=== PATIENT | female | born 1975 ===

== ENCOUNTER 2017-04-07 18:16 | Emergency (ER) | payer SELFPAY ==
[2017-04-07 18:16] VITALS: BMI 37.3
[2017-04-07 18:23] VITALS: BP 158/82; PULSE 118; RESP 20; O2SAT 95
[2017-04-07] MEDS ORDERED: Sodium Chloride 0.9% 1,000 ML IV STA (18:47)
[2017-04-07] MEDS ORDERED: Dexamethasone 10 MG in Sodium Chloride 0.9% 50 ML IV ONE (18:47)
[2017-04-07] MEDS ORDERED: Clindamycin 600 MG in Sodium Chloride 0.9% 100 ML IVPB STA (18:47)
--- NOTE | 2017-04-07 18:51 | ED PDOC ---
HPI: CCC, URI, Sore Throat Time Seen by Provider: 04/07/17 18:17 Chief Complaint (Nursing): ENT Problem Chief Complaint (Provider): Sore throat History Per: Patient Additional Complaint(s): 41 yo female, PMH of DM, presents to ED with complaints of severe sore throat since Monday, associated with fever. Past Medical History Reviewed: Nursing Documentation, Vital Signs Vital Signs: Last Vital Signs Temp 101.4 F H 04/07/17 20:15 Pulse 118 H 04/07/17 18:21 Resp 20 04/07/17 18:21 BP 158/82 H 04/07/17 18:21 Pulse Ox 95 04/07/17 18:51 - Medical History PMH: Anemia, Asthma, Bronchitis (07/27/16), Diabetes, HTN (HX, no meds), Migraine Denies: Chronic Kidney Disease - Surgical History Surgical History: No Surg Hx - Family History Family History: States: Unknown Family Hx - Living Arrangements Living Arrangements: With Family - Social History Current smoker - smoking cessation education provided: No Alcohol: Social Drugs: Denies - Home Medications Home Medications: Ambulatory Orders Medication Instructions Recorded Albuterol 0.083% [Albuterol 0.083% 2.5 mg IH Q4 PRN #20 neb 07/27/16 Inhal Bailey (2.5 mg/3 ml) UD] Albuterol HFA [Ventolin HFA 90 1 - 2 puff IH Q4 PRN #1 inhaler 07/27/16 mcg/actuation (8 g)] Ferrous Gluconate [Iron] 240 mg PO TID 10/04/16 Ibuprofen [Motrin Tab] 800 mg PO Q8 PRN 10/04/16 Clindamycin [Cleocin] 300 mg PO BID #14 cap 04/07/17 Ibuprofen [Motrin] 600 mg PO Q6 #20 tab 04/07/17 Methylprednisolone [Medrol Dose 4 mg PO DAILY #21 mg 04/07/17 Pack (21 tabs)] - Allergies Allergies/Adverse Reactions: Allergies Allergy/AdvReac Type Severity Reaction Status Date / Time PORK Allergy RASH Verified 04/07/17 18:21 shellfish derived Allergy RASH Verified 04/07/17 18:21 shrimp Allergy RASH Verified 04/07/17 18:21 red pepper Allergy SWELLING Uncoded 04/07/17 18:21 Review of Systems ROS Statement: Except As Marked, All Systems Reviewed And Found Negative Constitutional: Positive for: Fever ENT: Positive for: Throat Pain, Throat Swelling Physical Exam - Reviewed Nursing Documentation Reviewed: Yes Vital Signs Reviewed: Yes - Physical Exam Appears: Positive for: Well, Non-toxic, No Acute Distress Head Exam: Positive for: ATRAUMATIC, NORMAL INSPECTION, NORMOCEPHALIC Skin: Positive for: Normal Color, Warm, DRY Eye Exam: Positive for: EOMI, Normal appearance, PERRL ENT: Positive for: Normal ENT Inspection, Pharyngeal Erythema, Tonsillar Exudate , Tonsillar Swelling, Other (no palatal asymmetry, no uvula devation) Neck: Positive for: Normal, Painless ROM Cardiovascular/Chest: Positive for: Regular Rate, Rhythm Respiratory: Positive for: CNT, Normal Breath Sounds Gastrointestinal/Abdominal: Positive for: Normal Exam, Bowel Sounds, Soft Back: Positive for: Normal Inspection Extremity: Positive for: Normal ROM Neurologic/Psych: Positive for: Alert, Oriented - Laboratory Results Result Diagrams: 04/07/17 19:47 04/07/17 19:47 - ECG O2 Sat by Pulse Oximetry: 95 Medical Decision Making Medical Decision Making: IV access established and treatment initiated with IVF, Clinda., Morphine and Decadron First re-eval, pt report feeling improved. repeat temp 101 Labs resulted and reviewed with Pt who demonstrated full understanding Rapid strep (-) Throat culture pending Disposition - Clinical Impression Clinical Impression: Pharyngitis - Patient ED Disposition Is Patient to be Admitted: No - Disposition Disposition: Routine/Home Disposition Time: 21:48 Condition: STABLE Prescriptions: Clindamycin [Cleocin] 300 mg PO BID #14 cap Ibuprofen [Motrin] 600 mg PO Q6 #20 tab Methylprednisolone [Medrol Dose Pack (21 tabs)] 4 mg PO DAILY #21 mg Instructions: Pharyngitis (ED) Forms: [employer] (Hebrew) - POA Present On Arrival: None
[2017-04-07] MEDS ORDERED: Morphine 4 MG/ML VIAL ONE (19:15)
[2017-04-07 19:53] LABS: BASO # 0.1 K/uL (0.0-0.2); BASO % 0.8 % (0.0-2.0); EOS # 0.1 K/uL (0.0-0.7); EOS % 0.4 % (0.0-4.0); HEMOGLOBIN 11.9 g/dL (12.0-16.0); LYMPH # 1.6 K/uL (1.0-4.3); LYMPH % 9.5 % (20.0-40.0); MEAN CELL VOLUME 81.2 fl (81.0-99.0); MEAN CORPUSCULAR HEMOGLOBIN 26.4 pg (27.0-31.0); MEAN CORPUSCULAR HGB CONC 32.6 g/dL (33.0-37.0); MEAN PLATELET VOLUME 8.2 fl (7.2-11.7); MONO # 1.6 K/uL (0.0-0.8); MONO % 9.6 % (0.0-10.0); NEUT # 13.2 K/uL (1.8-7.0); NEUT % 79.7 % (50.0-75.0); PLATELET COUNT 352 K/uL (130-400); RED CELL DISTRIBUTION WIDTH 13.4 % (11.5-14.5); WHITE BLOOD COUNT 16.5 K/uL (4.8-10.8)
[2017-04-07 20:15] LABS: ALB/GLOB RATIO 1.2 (1.0-2.1); ALBUMIN 4.3 g/dL (3.5-5.0); ALT/SGPT 32 U/L (9-52); AST/SGOT 18 U/L (14-36); BLOOD UREA NITROGEN 5 mg/dl (7-17); GFR AFRICAN-AMERICAN > 60; GFR NON-AFRICAN AMERICAN > 60
[2017-04-07 21:11] LABS: ANISOCYTOSIS SLIGHT; BANDS 2 % (0-2); LYMPHOCYTE 11 % (20-50); MONOCYTE 12 % (0-10); NEUTROPHIL 75 % (42-75); PLATELET ESTIMATE NORMAL (NORMAL); TOTAL CELLS COUNTED 100
[2017-04-07 21:48] VITALS: TEMP 100.6
== END 2017-04-07 21:49 | disposition home or self-care (01) ==
LOC: H.ER 18:16
DX: J02.9 Acute pharyngitis, unspecified (principal)
CPT/HCPCS: 80053; 85025; 87040; 87070; 87430; 96374; 99283; J1100; J2270; J7040

== ENCOUNTER 2017-09-05 21:14 | Emergency (ER) | payer SELFPAY ==
[2017-09-05 21:14] VITALS: BMI 37.3
[2017-09-05 21:24] VITALS: TEMP 98.7; O2SAT 100
[2017-09-05] MEDS ORDERED: DiphenhydrAMINE 50 mg/ml Inj IM STA ×3 (21:44→23:16)
[2017-09-05] MEDS ORDERED: DiphenhydrAMINE 50 mg/ml Inj ONE ×2 (21:46→23:15)
[2017-09-05 21:52] VITALS: BP 151/88; RESP 18
[2017-09-05] MEDS ORDERED: Sodium Chloride 0.9% 1,000 ML IV STA (22:42)
[2017-09-05 23:11] LABS: BASO % 0.2 % (0.0-2.0); EOS # 0.5 K/uL (0.0-0.7); EOS % 4.1 % (0.0-4.0); HEMOGLOBIN 12.3 g/dL (12.0-16.0); LYMPH # 2.5 K/uL (1.0-4.3); LYMPH % 21.5 % (20.0-40.0); MEAN CORPUSCULAR HEMOGLOBIN 25.1 pg (27.0-31.0); MEAN CORPUSCULAR HGB CONC 31.8 g/dL (33.0-37.0); MEAN PLATELET VOLUME 8.6 fl (7.2-11.7); MONO # 0.9 K/uL (0.0-0.8); MONO % 7.9 % (0.0-10.0); NEUT # 7.8 K/uL (1.8-7.0); NEUT % 66.3 % (50.0-75.0); RBC 4.91 Mil/uL (3.80-5.20); RED CELL DISTRIBUTION WIDTH 15.3 % (11.5-14.5); WHITE BLOOD COUNT 11.8 K/uL (4.8-10.8)
[2017-09-05 23:17] LABS: ALB/GLOB RATIO 1.1 (1.0-2.1); ALBUMIN 4.3 g/dL (3.5-5.0); ALT/SGPT 36 U/L (9-52); AST/SGOT 20 U/L (14-36); BLOOD UREA NITROGEN 8 mg/dl (7-17); CALCIUM 9.1 mg/dL (8.4-10.2); GFR AFRICAN-AMERICAN > 60; GFR NON-AFRICAN AMERICAN > 60
[2017-09-05 23:25] LABS: BARBITURATES, UR NEGATIVE (NEGATIVE); BENZODIAZEPINES, UR NEGATIVE (NEGATIVE); OPIATES, UR NEGATIVE (NEGATIVE); PHENCYCLIDINE, UR NEGATIVE (NEGATIVE)
--- NOTE | 2017-09-06 12:18 | CARD ---
APPROVED REPORT EKG Measurement Heart [id number] <Conclusion> Sinus rhythm with marked sinus arrhythmia Otherwise normal ECG
--- NOTE | 2017-09-13 13:01 | ED PDOC ---
HPI: Allergic Reaction Time Seen by Provider: 09/05/17 21:31 Chief Complaint (Nursing): Allergic Reaction Chief Complaint (Provider): allergic reaction History Per: Patient, EMS History/Exam Limitations: no limitations Current Symptoms Are (Timing): Still Present Context: Food Possible Cause: Food Associated Symptoms: Skin Rash, Itching Home/EMS Treatment: None Severity: Mild Additional Complaint(s): 42yo female presents via EMS c/o itch/ mild rash with concern for exposure to soy in a snack she purchased at a local store several hours prior. The package states soy is present in the food. She denies sensation of throat closing, SOB or syncope. Past Medical History Reviewed: Historical Data, Nursing Documentation, Vital Signs Vital Signs: Last Vital Signs Temp 98.7 F 09/05/17 21:20 Pulse 90 09/05/17 21:50 Resp 18 09/05/17 21:50 BP 151/88 H 09/05/17 21:50 Pulse Ox 100 09/05/17 21:50 - Medical History PMH: Anemia, Asthma, Bronchitis (07/27/16), Diabetes, HTN (HX, no meds), Migraine Denies: Chronic Kidney Disease - Family History Family History: States: Unknown Family Hx - Social History Current smoker - smoking cessation education provided: No - Home Medications Home Medications: Ambulatory Orders Medication Instructions Recorded Albuterol 0.083% [Albuterol 0.083% 2.5 mg IH Q4 PRN #20 neb 07/27/16 Inhal Bailey (2.5 mg/3 ml) UD] Albuterol HFA [Ventolin HFA 90 1 - 2 puff IH Q4 PRN #1 inhaler 07/27/16 mcg/actuation (8 g)] Ferrous Gluconate [Iron] 240 mg PO TID 10/04/16 Ibuprofen [Motrin Tab] 800 mg PO Q8 PRN 10/04/16 Clindamycin [Cleocin] 300 mg PO BID #14 cap 04/07/17 Ibuprofen [Motrin] 600 mg PO Q6 #20 tab 04/07/17 Methylprednisolone [Medrol Dose 4 mg PO DAILY #21 mg 04/07/17 Pack (21 tabs)] DiphenhydrAMINE [Benadryl] 25 mg PO Q6 PRN #10 cap 09/05/17 Methylprednisolone [Medrol] 4 mg PO DAILY #1 tab.ds.pk 09/05/17 - Allergies Allergies/Adverse Reactions: Allergies Allergy/AdvReac Type Severity Reaction Status Date / Time PORK Allergy RASH Verified 09/06/17 14:33 shellfish derived Allergy RASH Verified 09/06/17 14:33 shrimp Allergy RASH Verified 09/06/17 14:33 red pepper Allergy SWELLING Uncoded 04/07/17 18:21 Review of Systems Constitutional: Negative for: Fever, Chills ENT: Negative for: Throat Pain, Throat Swelling Cardiovascular: Positive for: Chest Pain Respiratory: Positive for: Shortness of Breath Gastrointestinal: Negative for: Abdominal Pain Genitourinary Female: Negative for: Dysuria Musculoskeletal: Negative for: Neck Pain Skin: Negative for: Rash, Lesions Neurological: Negative for: Weakness, Numbness Psych: Negative for: Anxiety Physical Exam - Reviewed Nursing Documentation Reviewed: Yes Vital Signs Reviewed: Yes - Physical Exam Appears: Positive for: Well, Non-toxic, No Acute Distress Head Exam: Positive for: ATRAUMATIC, NORMAL INSPECTION, NORMOCEPHALIC Skin: Positive for: Warm, Rash (trace rash to neck/face, legs) Eye Exam: Positive for: EOMI, Normal appearance, PERRL ENT: Positive for: Normal ENT Inspection, Other (patent oropharynx). Negative for: Tonsillar Swelling Neck: Positive for: Normal, Painless ROM Cardiovascular/Chest: Positive for: Regular Rate, Rhythm Respiratory: Positive for: Normal Breath Sounds. Negative for: Stridor, Wheezing, Respiratory Distress Gastrointestinal/Abdominal: Positive for: Bowel Sounds, Soft. Negative for: Tenderness Back: Positive for: Normal Inspection Extremity: Positive for: Normal ROM. Negative for: Swelling Neurologic/Psych: Positive for: Alert, Oriented, Mood/Affect (anxious appearing , speech tangential at time grandiose). Negative for: Cerebellar Tests - Laboratory Results Result Diagrams: 09/05/17 23:08 09/05/17 23:05 - ECG ECG: Positive for: Interpreted By Me ECG Rhythm: Positive for: Normal ST Segment, Sinus Rhythm, Nonspecific Changes Rate: 77 O2 Sat by Pulse Oximetry: 100 Pulse Ox Interpretation: Normal - Progress ED Course And Treament: pt initially refused IV placement or blood draw. Benadryl offered IM. Eventually agreed to blood draw given report SOB, chest discomfort. She had periods of grandiosity and EMS reported she told them she was ?marrying the [facility]. She denies suicidal thoughts, hallucinations and while speech is mildly pressured, tangential, and appears anxious, she is not altered or actively hallucinatory while in ED. She was offered further observation in the ED but she refused and wanted to be discharged. While eccentric she did not display active indication to hold against will and was discharged to followup with PMD. No signs of anaphylaxis at the time of discharge. Disposition - Clinical Impression Clinical Impression: Allergic reaction - Patient ED Disposition Is Patient to be Admitted: No Counseled Patient/Family Regarding: Studies Performed - Disposition Disposition: Routine/Home Disposition Time: 23:15 Condition: STABLE Additional Instructions: Return to ER for any new symptoms. Avoid soy. Take benadryl as directed if symptoms return. Prescriptions: DiphenhydrAMINE [Benadryl] 25 mg PO Q6 PRN #10 cap PRN Reason: Allergy Symptoms Methylprednisolone [Medrol] 4 mg PO DAILY #1 tab.ds.pk Instructions: Food Allergy (ED), General Allergic Reaction (ED) Forms: [employer] (Urdu)
[2017-09-13 13:08] VITALS: PULSE 77
== END 2017-09-05 23:27 | disposition home or self-care (01) ==
LOC: H.ER 21:14
DX: T78.40XA Allergy, unspecified, initial encounter (principal); E11.9 Type 2 diabetes mellitus without complications; I10 Essential (primary) hypertension; J45.909 Unspecified asthma, uncomplicated
CPT/HCPCS: 80053; 80320; 80324; 80345; 80346; 80349; 80353; 80358; 80361; 81025; 82948; 83992; 85025; 93005; 96372; 99283; J1200

== ENCOUNTER 2017-09-17 08:22 | Emergency (ER) | payer SELFPAY ==
[2017-09-17 08:22] VITALS: BMI 35.9
[2017-09-17 09:35] VITALS: BP 155/99
[2017-09-17 09:41] VITALS: PULSE 94; TEMP 98; O2SAT 99
--- NOTE | 2017-09-17 09:50 | ED PDOC ---
HPI: General Adult Time Seen by Provider: 09/17/17 08:44 Chief Complaint (Nursing): Foreign Body Chief Complaint (Provider): Foreign Body History Per: Patient History/Exam Limitations: no limitations Current Symptoms Are (Timing): Still Present Additional Complaint(s): 42 y/o female with past medical history of keratoconus and hypertension (non complaint with medications) presents to the ED for evaluation of eye pain. Patient reports that she had discomfort in both eyes last night so she took out lens of the left eye but she couldn't find lens in the right eye. She is concerned that the lens might be stuck in the right eye. She has not seen her burlap bag sewer for over a year for proper fitting of lens. Patient complaints of right eye and right ear pain with some drainage from the right ear. Denies fever, chills, vision changes or any further medical complaints. Past Medical History Reviewed: Historical Data, Nursing Documentation, Vital Signs Vital Signs: Last Vital Signs Temp 98 F 09/17/17 08:45 Pulse 94 H 09/17/17 08:45 Resp BP 155/99 H 09/17/17 09:35 Pulse Ox 99 09/17/17 10:05 - Medical History PMH: Anemia, Asthma, Bronchitis (07/27/16), Diabetes, HTN (stopped taking meds aprrox. 3 years ago.), Migraine Denies: Hepatitis, HIV, Chronic Kidney Disease, Seizures, Sexually Transmitted Disease - Surgical History Other surgeries: BREAST REDUCTION .2003.LAPAROSCOPY 1996 .EXISION OF ABCESS LOWER [id number] - Family History Family History: States: Unknown Family Hx - Social History Current smoker - smoking cessation education provided: No (Never smoked) Alcohol: None Drugs: Denies - Home Medications Home Medications: Ambulatory Orders Medication Instructions Recorded Atenolol [Tenormin] 25 mg PO DAILY #14 tablet 09/17/17 Gentamicin Sulfate [Garamycin 0.3% 1 drop OU QID #1 bottle 09/17/17 Opth] Tetracaine 0.5% Ophth [Tetracaine 1 drop OD Q4H #1 bottle 09/17/17 0.5% Ophth Soln] - Allergies Allergies/Adverse Reactions: Allergies Allergy/AdvReac Type Severity Reaction Status Date / Time PORK Allergy RASH Verified 09/06/17 14:33 shellfish derived Allergy RASH Verified 09/06/17 14:33 shrimp Allergy RASH Verified 09/06/17 14:33 red pepper Allergy SWELLING Uncoded 04/07/17 18:21 Review of Systems ROS Statement: Except As Marked, All Systems Reviewed And Found Negative (As per HPI, otherwise negative) Constitutional: Negative for: Fever, Chills Eyes: Positive for: Pain, Other (Right eye pain). Negative for: Vision Change ENT: Positive for: Ear Pain (Right ear pain), Ear Discharge (Discharge noted from the right ear) Physical Exam - Reviewed Nursing Documentation Reviewed: Yes Vital Signs Reviewed: Yes - Physical Exam Appears: Positive for: Well, Non-toxic, No Acute Distress Head Exam: Positive for: ATRAUMATIC, NORMAL INSPECTION, NORMOCEPHALIC Skin: Positive for: Normal Color, Warm, Dry Eye Exam: Positive for: EOMI, Normal appearance, PERRL ENT: Positive for: Normal ENT Inspection Neck: Positive for: Normal, Painless ROM, Supple Neurologic/Psych: Positive for: Alert, Oriented (x3) - ECG O2 Sat by Pulse Oximetry: 99 (RA) Pulse Ox Interpretation: Normal Medical Decision Making Medical Decision Making: Time: 09:30 Initial Impression: Foreign body Plan: Right eye topical anesthetic -- Lens was not found in the eye. Case was discussed with burlap bag sewer search consultant Scribe Attestation: Documented by Sofi Bullard acting as a scribe for Crystal Rosa MD. Scribe Attestation: All medical record entries made by the Scribe were at my direction and personally dictated by me. I have reviewed the chart and agree that the record accurately reflects my personal performance of the history, physical exam, medical decision making, and the department course for this patient. I have also personally directed, reviewed, and agree with the discharge instructions and disposition. Disposition - Clinical Impression Clinical Impression: Conjunctiva disorder, Keratoconus of both eyes - Patient ED Disposition Is Patient to be Admitted: No Doctor Will See Patient In The: Office Counseled Patient/Family Regarding: Diagnosis, Need For Followup - Disposition Referrals: Duane Velasquez MD [Staff Provider] - 09/18/17 9:00 am Disposition: Routine/Home Disposition Time: 10:07 Condition: STABLE Prescriptions: Atenolol [Tenormin] 25 mg PO DAILY #14 tablet Gentamicin Sulfate [Garamycin 0.3% Opth] 1 drop OU QID #1 bottle Tetracaine 0.5% Ophth [Tetracaine 0.5% Ophth Soln] 1 drop OD Q4H #1 bottle Instructions: Keratoconus (ED), Hypertension (ED) Forms: [employer] (Maori) - POA Present On Arrival: None
== END 2017-09-17 10:14 | disposition home or self-care (01) ==
LOC: H.ER 08:22
DX: H11.9 Unspecified disorder of conjunctiva (principal); H18.603 Keratoconus, unspecified, bilateral; E11.9 Type 2 diabetes mellitus without complications; I10 Essential (primary) hypertension; J45.909 Unspecified asthma, uncomplicated

== ENCOUNTER 2018-01-19 12:46 | Emergency (ER) | payer SELFPAY ==
[2018-01-19 12:46] VITALS: BMI 35.9
[2018-01-19 12:56] VITALS: PULSE 89
[2018-01-19] MEDS ORDERED: Sodium Chloride 0.9% 1,000 ML IV SCH (13:30)
[2018-01-19 14:10] LABS: BASO # 0.1 K/uL (0.0-0.2); EOS # 0.1 K/uL (0.0-0.7); EOS % 0.6 % (0.0-4.0); LYMPH % 17.4 % (20.0-40.0); MEAN CELL VOLUME 77.5 fl (81.0-99.0); MEAN CORPUSCULAR HEMOGLOBIN 26.3 pg (27.0-31.0); MEAN PLATELET VOLUME 8.5 fl (7.2-11.7); MONO # 0.7 K/uL (0.0-0.8); MONO % 6.5 % (0.0-10.0); NEUT # 8.4 K/uL (1.8-7.0); NEUT % 74.5 % (50.0-75.0); RBC 4.93 Mil/uL (3.80-5.20); RED CELL DISTRIBUTION WIDTH 16.8 % (11.5-14.5); WHITE BLOOD COUNT 11.3 K/uL (4.8-10.8)
[2018-01-19 14:13] LABS: ALBUMIN 4.4 g/dL (3.5-5.0); ALT/SGPT 42 U/L (9-52); AST/SGOT 26 U/L (14-36); BLOOD UREA NITROGEN 8 mg/dl (7-17); CALCIUM 9.5 mg/dL (8.4-10.2); GFR AFRICAN-AMERICAN > 60; GFR NON-AFRICAN AMERICAN > 60
--- NOTE | 2018-01-19 14:32 | ED PDOC ---
HPI: Chest Pain Time Seen by Provider: 01/19/18 12:55 Chief Complaint (Nursing): Chest Pain History Per: Patient (this 42 yo female with h/o hypertension who returns to the ER because her blood pressure is still not controlled. She was here 5 days ago because of dizziness. She was noted to have high bp. states that a CT of the head was normal. She was restarted on Atenolol 25mg, the medication that she had stopped taking over one year ago because it didn't make her feel good. she also wanted to see whether she could control the pressure herself. She also reports having chest heaviness since yesterday that has been constant and not associated with exertion or shortness of breath.) History/Exam Limitations: no limitations Past Medical History Reviewed: Historical Data, Nursing Documentation, Vital Signs Vital Signs: Last Vital Signs Temp 100.2 F H 01/19/18 12:53 Pulse 89 01/19/18 12:53 Resp 18 01/19/18 12:53 BP 169/89 H 01/19/18 12:53 Pulse Ox 91 L 01/19/18 12:53 - Medical History PMH: Anemia, Asthma, Bronchitis (07/27/16), Diabetes, HTN (stopped taking meds aprrox. 3 years ago.), Migraine Denies: Hepatitis, HIV, Chronic Kidney Disease, Seizures, Sexually Transmitted Disease - Surgical History Surgical History: No Surg Hx - Family History Family History: States: Diabetes, Hypertension - Living Arrangements Living Arrangements: With Family - Social History Alcohol: None - Home Medications Home Medications: Ambulatory Orders Medication Instructions Recorded Atenolol [Tenormin] 25 mg PO DAILY #14 tablet 09/17/17 Gentamicin Sulfate [Garamycin 0.3% 1 drop OU QID #1 bottle 09/17/17 Opth] Tetracaine 0.5% Ophth [Tetracaine 1 drop OD Q4H #1 bottle 09/17/17 0.5% Ophth Soln] Atenolol [Tenormin] 25 mg PO DAILY #10 tab 01/15/18 - Allergies Allergies/Adverse Reactions: Allergies Allergy/AdvReac Type Severity Reaction Status Date / Time PORK Allergy RASH Verified 01/15/18 14:18 shellfish derived Allergy RASH Verified 01/15/18 14:18 shrimp Allergy RASH Verified 01/15/18 14:18 red pepper Allergy SWELLING Uncoded 01/15/18 14:18 VERONICA Risk Score for UA/NSTEMI - VERONICA Risk Score Age > 64: NO 3 or more CAD Risk Factors: NO Known CAD (Stenosis greater than 50%): NO Aspirin use in past 7 days: NO Severe Angina: NO EKG ST changes greater than 0.5mm: NO Positive Cardiac Marker: NO VERONICA Score: 0 Risk %: 5% Review of Systems ROS Statement: Except As Marked, All Systems Reviewed And Found Negative Cardiovascular: Positive for: Chest Pain Respiratory: Negative for: Shortness of Breath, SOB with Exertion Gastrointestinal: Negative for: Nausea, Vomiting Physical Exam - Reviewed Nursing Documentation Reviewed: Yes Vital Signs Reviewed: Yes - Physical Exam Appears: Positive for: Well, Non-toxic, No Acute Distress Head Exam: Positive for: ATRAUMATIC, NORMAL INSPECTION, NORMOCEPHALIC Skin: Positive for: Normal Color, Warm, DRY Eye Exam: Positive for: EOMI, Normal appearance, PERRL ENT: Positive for: Normal ENT Inspection Neck: Positive for: Normal, Painless ROM Cardiovascular/Chest: Positive for: Regular Rate, Rhythm Respiratory: Positive for: CNT, Normal Breath Sounds Gastrointestinal/Abdominal: Positive for: Normal Exam, Soft Back: Positive for: Normal Inspection Extremity: Positive for: Normal ROM Neurologic/Psych: Positive for: Alert, Oriented - Laboratory Results Result Diagrams: 01/19/18 13:48 01/19/18 13:48 - ECG O2 Sat by Pulse Oximetry: 91 Disposition - Clinical Impression Clinical Impression: Uncontrolled hypertension - Patient ED Disposition Is Patient to be Admitted: No Doctor Will See Patient In The: Office Counseled Patient/Family Regarding: Diagnosis, Need For Followup - Disposition Referrals: [facility] [place] [Outside] [facility] [Outside] Disposition: Routine/Home Disposition Time: 14:35 Condition: STABLE Additional Instructions: Continue the medicine as prescribed and followup in [facility] as scheduled. Instructions: High Blood Pressure in Adults Forms: [facility] (Icelandic), [facility] ED School/Work Excuse - POA Present On Arrival: None
[2018-01-19 15:07] VITALS: BP 145/83; RESP 19; TEMP 98.6; O2SAT 100
--- NOTE | 2018-01-19 16:54 | RAD ---
HISTORY: CP COMPARISON: No prior. TECHNIQUE: Chest PA and lateral FINDINGS: LUNGS: No active pulmonary disease. PLEURA: No significant pleural effusion identified. No pneumothorax apparent. CARDIOVASCULAR: Normal. OSSEOUS STRUCTURES: No significant abnormalities. VISUALIZED UPPER ABDOMEN: Normal. OTHER FINDINGS: None. IMPRESSION: No active disease.
--- NOTE | 2018-01-20 10:46 | CARD ---
APPROVED REPORT EKG Measurement Heart [id number] 142P40 [id number] <Conclusion> Normal sinus rhythm Normal ECG
== END 2018-01-19 15:36 | disposition home or self-care (01) ==
LOC: H.ER 12:46
DX: I10 Essential (primary) hypertension (principal); R07.89 Other chest pain; E11.9 Type 2 diabetes mellitus without complications; J45.909 Unspecified asthma, uncomplicated
CPT/HCPCS: 71046; 80053; 81025; 82948; 84484; 85025; 93005; 99284; J7040

== ENCOUNTER 2018-01-23 21:29 | Emergency (ER) | payer SELFPAY ==
[2018-01-23 21:29] VITALS: BMI 35.9
--- NOTE | 2018-01-24 00:23 | ED PDOC ---
HPI: Hypertension/Hypotension Time Seen by Provider: 01/23/18 21:30 Chief Complaint (Nursing): High Blood Pressure Chief Complaint (Provider): Dizziness and Headaches History Per: Patient History/Exam Limitations: no limitations Onset/Duration Of Symptoms: Days (x1 week) Current Symptoms Are (Timing): Still Present Additional Complaint(s): 42 y/o female with a pmhx of asthma and HTN, who presents to the ED for evaluation of dizziness and intermittent headaches x1 week. Patient reports she was seen on the and sent home with Atenolol. Patient reports she has had dizziness, intermittent headaches, and has felt loopy since. Denies chest pain or shortness of breath. Patient also reports feeling anxious, polyuria, and mild dysuria. Denies fever, vomiting, and diarrhea. PMD: [place] Past Medical History Reviewed: Historical Data, Nursing Documentation, Vital Signs Vital Signs: Last Vital Signs Temp 98.6 F 01/23/18 21:33 Pulse 78 01/23/18 21:33 Resp 16 01/23/18 21:33 BP 153/93 H 01/23/18 22:37 Pulse Ox 98 01/23/18 21:33 - Medical History PMH: Anemia, Asthma, Bronchitis (07/27/16), Diabetes, HTN, Migraine Denies: Hepatitis, HIV, Chronic Kidney Disease, Seizures, Sexually Transmitted Disease - Surgical History Surgical History: No Surg Hx - Family History Family History: States: Unknown Family Hx, Diabetes, Hypertension - Social History Current smoker - smoking cessation education provided: No Alcohol: None Drugs: Denies - Home Medications Home Medications: Ambulatory Orders Medication Instructions Recorded Atenolol [Tenormin] 25 mg PO DAILY #14 tablet 09/17/17 Gentamicin Sulfate [Garamycin 0.3% 1 drop OU QID #1 bottle 09/17/17 Opth] Tetracaine 0.5% Ophth [Tetracaine 1 drop OD Q4H #1 bottle 09/17/17 0.5% Ophth Soln] Atenolol [Tenormin] 25 mg PO DAILY #10 tab 01/15/18 - Allergies Allergies/Adverse Reactions: Allergies Allergy/AdvReac Type Severity Reaction Status Date / Time PORK Allergy RASH Verified 01/24/18 17:12 shellfish derived Allergy RASH Verified 01/24/18 17:12 shrimp Allergy RASH Verified 01/24/18 17:12 red pepper Allergy SWELLING Uncoded 01/24/18 17:12 Review of Systems ROS Statement: Except As Marked, All Systems Reviewed And Found Negative Constitutional: Negative for: Fever Cardiovascular: Negative for: Chest Pain Respiratory: Negative for: Shortness of Breath Gastrointestinal: Negative for: Vomiting, Diarrhea Genitourinary Female: Positive for: Dysuria, Other (polyuria) Neurological: Positive for: Headache, Dizziness Psych: Positive for: Anxiety Physical Exam - Reviewed Nursing Documentation Reviewed: Yes Vital Signs Reviewed: Yes - Physical Exam Appears: Positive for: Non-toxic, No Acute Distress Head Exam: Positive for: ATRAUMATIC Skin: Positive for: Normal Color, Warm, Dry. Negative for: Rash Eye Exam: Positive for: EOMI, Normal appearance, PERRL Neck: Positive for: Normal, Painless ROM, Supple Cardiovascular/Chest: Positive for: Regular Rate, Rhythm. Negative for: Murmur Respiratory: Positive for: Normal Breath Sounds. Negative for: Respiratory Distress Gastrointestinal/Abdominal: Positive for: Normal Exam, Soft. Negative for: Tenderness Back: Positive for: Normal Inspection. Negative for: L CVA Tenderness, R CVA Tenderness, Vertebral Tenderness Extremity: Positive for: Normal ROM. Negative for: Pedal Edema, Deformity Neurologic/Psych: Positive for: Alert, Oriented. Negative for: Motor/Sensory Deficits - Laboratory Results Result Diagrams: 01/24/18 00:39 01/24/18 00:39 - ECG O2 Sat by Pulse Oximetry: 98 (RA) Pulse Ox Interpretation: Normal Medical Decision Making Medical Decision Makin:16 Initial Impression: headache, htn Differential diagnoses include, but are not limited to possible side effects of Atenolol, elevated blood sugar, UTI Plan: --CMP --CBC --Urine C&S --Urinalysis --Reevaluation EKG: NSR at 69 bpm. Scribe Attestation: Documented by Gonzalo Berg, acting as a scribe for Farooq Rogers MD. Provider Scribe Attestation: All medical record entries made by the Scribe were at my direction and personally dictated by me. I have reviewed the chart and agree that the record accurately reflects my personal performance of the history, physical exam, medical decision making, and the department course for this patient. I have also personally directed, reviewed, and agree with the discharge instructions and disposition. Disposition - Clinical Impression Clinical Impression: Abnormal blood pressure - Patient ED Disposition Is Patient to be Admitted: Transfer of Care - Disposition Referrals: [facility] [Outside] Disposition: Transfer of Care Disposition Time: 00:00 Condition: STABLE Instructions: High Blood Pressure in Adults Forms: [employer] (Tristanian) Patient Signed Over To: Yusuf Russo Handoff Comments: pending workup and dispo
[2018-01-24 00:45] LABS: BASO # 0.2 K/uL (0.0-0.2); BASO % 1.5 % (0.0-2.0); EOS # 0.1 K/uL (0.0-0.7); EOS % 1.1 % (0.0-4.0); HEMOGLOBIN 13.3 g/dL (12.0-16.0); LYMPH # 2.7 K/uL (1.0-4.3); LYMPH % 23.6 % (20.0-40.0); MEAN CELL VOLUME 77.8 fl (81.0-99.0); MEAN CORPUSCULAR HEMOGLOBIN 26.4 pg (27.0-31.0); MEAN PLATELET VOLUME 8.4 fl (7.2-11.7); MONO % 8.6 % (0.0-10.0); NEUT # 7.4 K/uL (1.8-7.0); NEUT % 65.2 % (50.0-75.0); RBC 5.05 Mil/uL (3.80-5.20); RED CELL DISTRIBUTION WIDTH 16.6 % (11.5-14.5); WHITE BLOOD COUNT 11.3 K/uL (4.8-10.8)
[2018-01-24 00:53] LABS: SQUAMOUS EPITHIAL 1 /hpf (0-5); URINE BACTERIA RARE (<OCC); URINE BILIRUBIN NEGATIVE (NEGATIVE); URINE BLOOD MODERATE (NEGATIVE); URINE CLARITY SLIGHTY-CLOUDY (Clear); URINE COLOR STRAW (YELLOW); URINE GLUCOSE (UA) NEG (Normal); URINE LEUKOCYTE ESTERASE SMALL Leu/uL (Negative); URINE PROTEIN NEGATIVE (NEGATIVE); URINE UROBILINOGEN 0.2-1.0 mg/dL (0.2-1.0)
[2018-01-24 01:14] LABS: BLOOD UREA NITROGEN 6 mg/dl (7-17); GFR AFRICAN-AMERICAN > 60; GFR NON-AFRICAN AMERICAN > 60
[2018-01-24 01:15] LABS: ALBUMIN 4.2 g/dL (3.5-5.0); ALT/SGPT 35 U/L (9-52); AST/SGOT 27 U/L (14-36); CALCIUM 9.5 mg/dL (8.4-10.2)
--- NOTE | 2018-01-24 01:38 | ED PDOC ---
- Laboratory Results Result Diagrams: 01/24/18 00:39 18 00:39 - ECG O2 Sat by Pulse Oximetry: 98 (RA) Medical Decision Making Medical Decision Making: Time: 00:00 Patient endorsed to me by Dr. Rogers pending labs and reevaluation. Time: 01:38 Patient is medically stable and will be discharged home. Patient advised to follow up with PMD and return if symptoms persist or worsen. Patient is going to followup with PMD at 3PM today. Scribe Attestation: Documented by Gonzalo Berg, acting as a scribe for Yusuf Russo MD. Provider Scribe Attestation: All medical record entries made by the Scribe were at my direction and personally dictated by me. I have reviewed the chart and agree that the record accurately reflects my personal performance of the history, physical exam, medical decision making, and the department course for this patient. I have also personally directed, reviewed, and agree with the discharge instructions and disposition. Disposition - Clinical Impression Clinical Impression: Abnormal blood pressure - POA Present On Arrival: None - Disposition Referrals: [facility] [Outside] Disposition: Routine/Home Disposition Time: 01:38 Condition: STABLE Instructions: High Blood Pressure in Adults Forms: [employer] (Bengali)
[2018-01-24 01:45] VITALS: BP 156/94; PULSE 86; RESP 18; TEMP 98.1
[2018-01-24 03:31] VITALS: O2SAT 98
== END 2018-01-24 01:45 | disposition home or self-care (01) ==
LOC: H.ER 21:29
DX: I10 Essential (primary) hypertension (principal); E11.9 Type 2 diabetes mellitus without complications; J45.909 Unspecified asthma, uncomplicated; R03.0 Elevated blood-pressure reading, without diagnosis of hypertension

== ENCOUNTER 2018-03-10 13:24 | Emergency (ER) | payer OTHER, SELFPAY ==
[2018-03-10 13:25] VITALS: BMI 35.9
[2018-03-10 13:51] VITALS: TEMP 98.5
--- NOTE | 2018-03-10 13:53 | ED PDOC ---
HPI: General Adult Time Seen by Provider: 03/10/18 13:53 Chief Complaint (Nursing): GI Problem Chief Complaint (Provider): abd pain History Per: Patient Additional Complaint(s): 42-year-old female presents with lower abdominal pain 4 days. Patient has urinary frequency, urgency and dysuria. She also states she has not had a bowel movement in 4 days. She denies fever or chills. She complains of nausea with no vomiting. Patient denies history of constipation. Her last bowel movement was 4 days ago. PMD: none Past Medical History Reviewed: Historical Data, Nursing Documentation, Vital Signs Vital Signs: Last Vital Signs Temp 98.5 F 03/10/18 13:48 Pulse 78 03/10/18 13:48 Resp 20 03/10/18 13:48 BP 129/84 03/10/18 13:48 Pulse Ox 100 03/10/18 14:46 - Medical History PMH: Anemia, Anxiety, Asthma, Bipolar Disorder, Diabetes, HTN, Migraine - Surgical History Other surgeries: uterine ablation - Family History Family History: States: Diabetes, Hypertension - Living Arrangements Living Arrangements: With Family - Social History Current smoker - smoking cessation education provided: No Alcohol: None Drugs: Denies - Home Medications Home Medications: Ambulatory Orders Medication Instructions Recorded Atenolol [Tenormin] 25 mg PO DAILY #14 tablet 09/17/17 Gentamicin Sulfate [Garamycin 0.3% 1 drop OU QID #1 bottle 09/17/17 Opth] Tetracaine 0.5% Ophth [Tetracaine 1 drop OD Q4H #1 bottle 09/17/17 0.5% Ophth Soln] Atenolol [Tenormin] 25 mg PO DAILY #10 tab 01/15/18 Benztropine [Cogentin] 0.5 mg PO BID #60 tab 02/03/18 Sertraline [Zoloft] 25 mg PO DAILY #30 tab 02/03/18 fluPHENAZine [Prolixin] 5 mg PO BID #60 tab 02/03/18 Ibuprofen [Motrin Tab] 800 mg PO Q8 PRN #20 tab 03/10/18 Nitrofurantoin Macrocrystals 100 mg PO BID #14 cap 03/10/18 [Macrobid] - Allergies Allergies/Adverse Reactions: Allergies Allergy/AdvReac Type Severity Reaction Status Date / Time PORK Allergy RASH Verified 01/24/18 17:12 shellfish derived Allergy RASH Verified 01/24/18 17:12 shrimp Allergy RASH Verified 01/24/18 17:12 red pepper Allergy SWELLING Uncoded 01/24/18 17:12 Review of Systems ROS Statement: Except As Marked, All Systems Reviewed And Found Negative Constitutional: Negative for: Fever, Chills Cardiovascular: Negative for: Chest Pain Respiratory: Negative for: Cough Gastrointestinal: Positive for: Nausea, Abdominal Pain, Constipation. Negative for: Vomiting, Diarrhea Genitourinary Female: Positive for: Dysuria. Negative for: Vaginal Discharge, Vaginal Bleeding Physical Exam - Reviewed Nursing Documentation Reviewed: Yes Vital Signs Reviewed: Yes - Physical Exam Appears: Positive for: Well Skin: Positive for: Normal Color. Negative for: Rash Eye Exam: Positive for: Normal appearance Cardiovascular/Chest: Positive for: Regular Rate, Rhythm Respiratory: Positive for: Normal Breath Sounds Gastrointestinal/Abdominal: Positive for: Tenderness (Mild suprapubic tenderness , no rebound, no guarding, no distention, normoactive bowel sounds in all 4 quadrants) Back: Negative for: L CVA Tenderness, R CVA Tenderness Extremity: Positive for: Normal ROM Neurologic/Psych: Positive for: Alert, Oriented - Laboratory Results Result Diagrams: 03/10/18 14:50 03/10/18 14:50 Urine POC: Negative Urine dip results: Positive for: Leukocyte Esterase (moderate). Negative for: Blood, Nitrate, Ketones, Glucose, Bilirubin, Protein - ECG O2 Sat by Pulse Oximetry: 100 Pulse Ox Interpretation: Normal Medical Decision Making Medical Decision Makin42 year old with abd pain, constipation and dysuria Abdominal exam is benign Plan: Urine dip Urine test CBC CMP Lipase IVF IV toradol PO magnesium citrate - patient prefers to take this at home UTI noted, 1 gram IV rocephin given. Patient aware of all diagnostic testing results, all questions answered. Prescriptions given for Macrobid and Motrin. Advised fluids, rest. Dietary instructions given for relief of constipation. Disposition - Clinical Impression Clinical Impression: Urinary tract infection, Constipation - Patient ED Disposition Is Patient to be Admitted: No Counseled Patient/Family Regarding: Studies Performed, Diagnosis, Need For Followup, Rx Given - Disposition Referrals: [facility] [Outside] Disposition: Routine/Home Disposition Time: 15:38 Condition: STABLE Additional Instructions: Take prescription meds as directed. Drink plenty of fluids and increase fiber in diet to help relieve constipation. Follow-up with clinic in 2-3 days. Prescriptions: Ibuprofen [Motrin Tab] 800 mg PO Q8 PRN #20 tab PRN Reason: Pain, Moderate (4-7) Nitrofurantoin Macrocrystals [Macrobid] 100 mg PO BID #14 cap Instructions: Urinary Tract Infection, Adult (DC), Constipation in Adults, High Fiber Diet Forms: [employer] (Kazakh) Results - Lab Results Lab Results: 03/10/18 03/10/18 14:50 14:50 WBC 10.3 RBC 4.81 Hgb 12.7 Hct 38.1 MCV 79.2 L MCH 26.5 L MCHC 33.4 RDW 14.2 Plt Count 442 H MPV 8.6 Neut % (Auto) 71.3 Lymph % (Auto) 19.3 L [place] % (Auto) 7.4 Eos % (Auto) 1.2 Baso % (Auto) 0.8 Neut # (Auto) 7.3 H Lymph # (Auto) 2.0 [place] # (Auto) 0.8 Eos # (Auto) 0.1 Baso # (Auto) 0.1 Sodium 142 Potassium 4.5 Chloride 105 Carbon Dioxide 23 Anion Gap 19 BUN 6 L Creatinine 0.5 L Est GFR ( Amer) > 60 Est GFR (Non-Af Amer) > 60 Random Glucose 104 Calcium 9.4 Total Bilirubin 1.6 H AST 39 H D ALT 36 Alkaline Phosphatase 64 Total Protein 8.1 Albumin 4.3 Globulin 3.8 Albumin/Globulin Ratio 1.1 Lipase 33
[2018-03-10] MEDS ORDERED: Sodium Chloride 0.9% 1,000 ML IV STA (13:59)
[2018-03-10] MEDS ORDERED: Magnesium Citrate Oral SOL (300 ml) PO STA (14:25)
[2018-03-10 15:01] LABS: BASO # 0.1 K/uL (0.0-0.2); BASO % 0.8 % (0.0-2.0); EOS # 0.1 K/uL (0.0-0.7); EOS % 1.2 % (0.0-4.0); HEMOGLOBIN 12.7 g/dL (12.0-16.0); LYMPH % 19.3 % (20.0-40.0); MEAN CELL VOLUME 79.2 fl (81.0-99.0); MEAN CORPUSCULAR HEMOGLOBIN 26.5 pg (27.0-31.0); MEAN CORPUSCULAR HGB CONC 33.4 g/dL (33.0-37.0); MEAN PLATELET VOLUME 8.6 fl (7.2-11.7); MONO # 0.8 K/uL (0.0-0.8); MONO % 7.4 % (0.0-10.0); NEUT # 7.3 K/uL (1.8-7.0); NEUT % 71.3 % (50.0-75.0); NRBC % 0.1 % (0.0-0.0); RBC 4.81 Mil/uL (3.80-5.20); RED CELL DISTRIBUTION WIDTH 14.2 % (11.5-14.5); WHITE BLOOD COUNT 10.3 K/uL (4.8-10.8)
[2018-03-10] MEDS ORDERED: cefTRIAXone (Rocephin) 1 gm Inj ONE (15:09)
[2018-03-10] MEDS ORDERED: Magnesium Citrate Oral SOL (300 ml) ONE (15:10)
[2018-03-10 15:13] LABS: CALCIUM 9.4 mg/dL (8.4-10.2); GFR AFRICAN-AMERICAN > 60; GFR NON-AFRICAN AMERICAN > 60; LIPASE 33 U/L (23-300)
[2018-03-10 15:26] LABS: ALB/GLOB RATIO 1.1 (1.0-2.1); ALBUMIN 4.3 g/dL (3.5-5.0); ALT/SGPT 36 U/L (9-52); AST/SGOT 39 U/L (14-36); BLOOD UREA NITROGEN 6 mg/dl (7-17)
[2018-03-10 17:21] VITALS: BP 123/82; PULSE 72; RESP 16; O2SAT 98
== END 2018-03-10 17:22 | disposition home or self-care (01) ==
LOC: H.ER 13:24
DX: N39.0 Urinary tract infection, site not specified (principal); E11.9 Type 2 diabetes mellitus without complications; Z86.59 Personal history of other mental and behavioral disorders; I10 Essential (primary) hypertension; J45.909 Unspecified asthma, uncomplicated; K59.00 Constipation, unspecified
CPT/HCPCS: 80053; 81025; 83690; 85025; 96360; 99284; J0696; J1885; J7030

== ENCOUNTER 2018-05-07 13:29 | Emergency (ER) | payer MEDICAID ==
[2018-05-07 13:29] VITALS: BMI 35.9
[2018-05-07 13:38] VITALS: BP 112/74; PULSE 71; RESP 16; TEMP 98.6; O2SAT 97
[2018-05-07] MEDS ORDERED: Sodium Chloride 0.9% 1,000 ML IV STA (14:18)
--- NOTE | 2018-05-07 14:30 | ED PDOC ---
HPI: Abdomen Time Seen by Provider: 05/07/18 13:52 Chief Complaint (Nursing): Abdominal Pain Chief Complaint (Provider): Suprapubic pain, nausea History Per: Patient History/Exam Limitations: no limitations Onset/Duration Of Symptoms: Days Outside of [place] travel?: No Additional Complaint(s): 43 yo female with no past medical history presents for evaluation of suprapubic pain and lower back pain. Pt states it has been going on for 1 week. PT also reports intermittent nausea and increased frequency. No vomiting. Tolerating PO. PT denies taking medications daily for any past medical history. Past Medical History Reviewed: Historical Data, Nursing Documentation, Vital Signs Vital Signs: Last Vital Signs Temp 98.6 F 05/07/18 13:35 Pulse 71 05/07/18 13:35 Resp 16 05/07/18 13:35 BP 112/74 05/07/18 13:35 Pulse Ox 97 05/07/18 14:31 - Medical History PMH: Anemia, Anxiety, Asthma, Bipolar Disorder, Bronchitis (07/27/16), Diabetes , HTN, Migraine Denies: Hepatitis, HIV, Chronic Kidney Disease, Seizures, Sexually Transmitted Disease - Family History Family History: States: Diabetes, Hypertension - Immunization History Hx Tetanus Toxoid Vaccination: No Hx Influenza Vaccination: No Hx Pneumococcal Vaccination: No - Home Medications Home Medications: Ambulatory Orders Medication Instructions Recorded Atenolol [Tenormin] 25 mg PO DAILY #14 tablet 09/17/17 Gentamicin Sulfate [Garamycin 0.3% 1 drop OU QID #1 bottle 09/17/17 Opth] Tetracaine 0.5% Ophth [Tetracaine 1 drop OD Q4H #1 bottle 09/17/17 0.5% Ophth Soln] Atenolol [Tenormin] 25 mg PO DAILY #10 tab 01/15/18 Benztropine [Cogentin] 0.5 mg PO BID #60 tab 02/03/18 Sertraline [Zoloft] 25 mg PO DAILY #30 tab 02/03/18 fluPHENAZine [Prolixin] 5 mg PO BID #60 tab 02/03/18 Ciprofloxacin HCl [Cipro] 500 mg PO BID #14 tablet 03/10/18 Ibuprofen [Motrin Tab] 800 mg PO Q8 PRN #20 tab 03/10/18 Ciprofloxacin [Cipro] 500 mg PO BID #10 tab 05/07/18 - Allergies Allergies/Adverse Reactions: Allergies Allergy/AdvReac Type Severity Reaction Status Date / Time PORK Allergy RASH Verified 01/24/18 17:12 shellfish derived Allergy RASH Verified 01/24/18 17:12 shrimp Allergy RASH Verified 01/24/18 17:12 red pepper Allergy SWELLING Uncoded 01/24/18 17:12 Review of Systems ROS Statement: Except As Marked, All Systems Reviewed And Found Negative Constitutional: Negative for: Fever, Chills Gastrointestinal: Positive for: Nausea. Negative for: Vomiting, Abdominal Pain Genitourinary Female: Positive for: Dysuria, Frequency. Negative for: Hematuria , Vaginal Bleeding Physical Exam - Reviewed Nursing Documentation Reviewed: Yes Vital Signs Reviewed: Yes - Physical Exam Appears: Positive for: Well, Non-toxic, No Acute Distress Head Exam: Positive for: ATRAUMATIC, NORMAL INSPECTION, NORMOCEPHALIC Skin: Positive for: Normal Color, Warm, DRY Eye Exam: Positive for: Normal appearance ENT: Positive for: Normal ENT Inspection Neck: Positive for: Normal, Painless ROM Cardiovascular/Chest: Positive for: Regular Rate, Rhythm Respiratory: Positive for: CNT, Normal Breath Sounds Gastrointestinal/Abdominal: Positive for: Normal Exam, Soft. Negative for: Tenderness, Guarding Back: Positive for: Normal Inspection. Negative for: L CVA Tenderness, R CVA Tenderness Extremity: Positive for: Normal ROM Neurologic/Psych: Positive for: Alert, Oriented - Laboratory Results Result Diagrams: 05/07/18 14:33 05/07/18 14:33 - ECG O2 Sat by Pulse Oximetry: 97 Pulse Ox Interpretation: Normal Medical Decision Making Medical Decision Making: Pt reports feeling better on re-evaluation. Rocephin IV ordered. Disposition - Clinical Impression Clinical Impression: UTI (urinary tract infection) - Patient ED Disposition Is Patient to be Admitted: No Counseled Patient/Family Regarding: Diagnosis, Need For Followup, Rx Given - Disposition Disposition: Routine/Home Disposition Time: 17:30 Condition: GOOD Prescriptions: Ciprofloxacin [Cipro] 500 mg PO BID #10 tab Instructions: Urinary Tract Infection, Adult (DC) Forms: [employer] (Frisian)
[2018-05-07 14:33] LABS: SQUAMOUS EPITHIAL 10 /hpf (0-5); URINE BACTERIA RARE (<OCC); URINE BILIRUBIN NEGATIVE (NEGATIVE); URINE BLOOD SMALL (NEGATIVE); URINE CLARITY CLOUDY (Clear); URINE COLOR YELLOW (YELLOW); URINE GLUCOSE (UA) NEG (Normal); URINE LEUKOCYTE ESTERASE MOD Leu/uL (Negative); URINE PROTEIN 30 mg/dL (NEGATIVE); URINE UROBILINOGEN 0.2-1.0 mg/dL (0.2-1.0)
[2018-05-07 14:52] LABS: ALB/GLOB RATIO 1.2 (1.0-2.1); ALT/SGPT 24 U/L (9-52); AST/SGOT 19 U/L (14-36); BLOOD UREA NITROGEN 10 mg/dl (7-17); CALCIUM 9.1 mg/dL (8.4-10.2); GFR NON-AFRICAN AMERICAN > 60
[2018-05-07 14:57] LABS: BASO # 0.1 K/uL (0.0-0.2); BASO % 0.7 % (0.0-2.0); EOS # 0.2 K/uL (0.0-0.7); EOS % 1.6 % (0.0-4.0); HEMOGLOBIN 12.6 g/dL (12.0-16.0); LYMPH % 17.6 % (20.0-40.0); MEAN CELL VOLUME 78.8 fl (81.0-99.0); MEAN CORPUSCULAR HEMOGLOBIN 26.5 pg (27.0-31.0); MEAN CORPUSCULAR HGB CONC 33.6 g/dL (33.0-37.0); MEAN PLATELET VOLUME 9.1 fl (7.2-11.7); MONO # 0.8 K/uL (0.0-0.8); MONO % 6.9 % (0.0-10.0); NEUT # 8.4 K/uL (1.8-7.0); NEUT % 73.2 % (50.0-75.0); NRBC % 0.1 % (0.0-0.0); RBC 4.75 Mil/uL (3.80-5.20); RED CELL DISTRIBUTION WIDTH 14.6 % (11.5-14.5); WHITE BLOOD COUNT 11.5 K/uL (4.8-10.8)
[2018-05-07] MEDS ORDERED: cefTRIAXone (Rocephin) 1 gm Inj ONE (16:24)
== END 2018-05-07 18:02 | disposition home or self-care (01) ==
LOC: H.ER 13:29
DX: N39.0 Urinary tract infection, site not specified (principal); E11.9 Type 2 diabetes mellitus without complications; F31.9 Bipolar disorder, unspecified; F41.9 Anxiety disorder, unspecified; I10 Essential (primary) hypertension
CPT/HCPCS: 80053; 81003; 81025; 85025; 87086; 96361; 96365; 96375; 99283; J0696; J2405; J7030